=== PATIENT | female | born 2005 | race Asian ===

== ENCOUNTER 2025-08-25 18:04 | Emergency (ER) | payer OTHER, SELFPAY ==
[2025-08-25] VITALS (10 sets, daily range): BP systolic 116–150; BP diastolic 74–107; PULSE 78–104; RESP 18–38; TEMP 36.7; O2SAT 96–98; BMI 31.8
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
== END 2025-08-25 19:58 | disposition home or self-care (01) ==
LOC: ED 08-26 21:22
PROVIDERS: Emergency Provider Emergency Medicine Emergency Medical Services
DX: S40.812A Abrasion of left upper arm, initial encounter (principal); S40.811A Abrasion of right upper arm, initial encounter; R10.30 Lower abdominal pain, unspecified; R51.9 Headache, unspecified; V49.50XA Passenger injured in collision with unspecified motor vehicles in traffic accident, initial encounter; Y92.411 Interstate highway as the place of occurrence of the external cause
CPT/HCPCS: 70450; 70486; 72125; 81001; 94761; 99284; 99285; 99291